=== PATIENT | female | born 1940 | race Caucasian/White ===

== ENCOUNTER → 2024-02-23 13:56 | Outpatient (REF) | payer OTHER, SELFPAY | LOC: HWRCS 13:56 | PROVIDERS: ATTENDING PHYSICIAN Internal Medicine Interventional Cardiology; FAMILY PHYSICIAN Emergency Medicine | DX: I10 Essential (primary) hypertension (principal); I25.10 Atherosclerotic heart disease of native coronary artery without angina pectoris; E78.2 Mixed hyperlipidemia | CPT/HCPCS: 93306 ==

== ENCOUNTER → 2024-10-25 10:54 | Outpatient (REF) | payer OTHER, SELFPAY | LOC: RAD 10:54 | PROVIDERS: ATTENDING PHYSICIAN Emergency Medicine | DX: M79.89 Other specified soft tissue disorders (principal) | CPT/HCPCS: 93971 ==

== ENCOUNTER 2024-12-25 22:12 | Inpatient (IN) | payer OTHER, SELFPAY ==
[2024-12-25 20:27] VITALS: BP 145/70
--- NOTE | 2024-12-25 21:25 | ED.GENMED ---
History of Present Illness
General
Chief Complaint: Fall
Source: patient
Exam Limitations: none
Time Seen by Provider: 12/25/24 20:27
Nursing documentation reviewed up to this point in time: agreed with
History of Present Illness
History of Present Illness:
84-year-old female with past medical history of CAD, previous stroke currently on Plavix presenting to the emergency department after sitting awkwardly on a chair that seem to break underneath her she fell directly onto her left hip has not been
able to ambulate since. Did not hit her head did not sustain any additional trauma. Adamantly denies any head trauma no neck pain no numbness or weakness. Was brought in by EMS.
Past History
Past History
ED Past Medical History: CAD, HTN and Hypercholesterolemia
ED Past Surgical History: Cardiac
Social History
Personal:
Living: with family
Review of Systems
Review of Systems
Allergies reviewed?: Yes
All Other Systems: ROS reviewed and negative except as documented in HPI and ROS
Phy Exam
Physical Exam
Physical Exam:
GENERAL: Alert , in no apparent distress
EYE: pupils equal and reactive
NECK: Supple, no significant adenopathy.
ENT: o/p clr, mmm.
CARDIAC: Regular rate and rhythm .
LUNGS: Clear breath sounds bilaterally, no acute respiratory distress, no wheezes/rales/rhonchi
ABDOMEN: Soft, without focal tenderness, no r/g, no cvat
NEUROLOGICAL: Alert and oriented, no focal neuro deficits
SKIN: Warm and dry, skin intact.
MUSCULOSKELETAL: Pain and swelling to the left hip unwilling to move at the hip no redness or warmth to the area no tenderness throughout the remainder of the lower extremities., well perfused.
PSYCH: Normal and appropriate interaction.
Course
Orders/Labs/Results
Orders:
Orders
12/25/24 20:32
CR Hip - LT w/wo Pel 2-3 Vw* Urgent
Comment:
Reason For Exam: injury/fall
Include a pelvis x-ray?: Yes
12/25/24 21:23
BMP [Basic Metabolic Panel] Urgent
CBC/With Diff [Complete Blood Count/With Diff] Stat
HYDROmorphone [Dilaudid] 0.5 mg IV NOW STA
Vital Signs
Initial and Last Documented VS:
Initial Vital Signs
Temp Pulse Resp BP Pulse Ox
98.2 F 66 20 145/70 97
12/25/24 20:27 12/25/24 20:27 12/25/24 20:27 12/25/24 20:27 12/25/24 20:27
Last Documented Vital Signs
Temp Pulse Resp BP Pulse Ox
98.2 F 66 20 145/70 97
12/25/24 20:27 12/25/24 20:27 12/25/24 20:27 12/25/24 20:27 12/25/24 20:27
MDM/Problems Addressed
MDM/Problems Addressed:
84-year-old female presenting to the emergency department today after landing on her hip on the left side after a chair broke underneath her. Vital signs normal patient in no distress but does have discomfort to the left hip. X-ray showing hip
fracture. Case discussed with orthopedics who recommend n.p.o. at midnight for likely repair tomorrow. Patient in no distress here stable at time of admission.
*Critical Care Note
Total Time (30-74mins, 75-104mins- exclusive of procedures): Not Applicable
ED Attending Note
-
Portions of this chart may have been created with voice recognition software.� Occasional wrong word or��sound alike� substitutions may have occurred due to the inherent limitations of voice recognition software.
Discharge Plan
Departure
Patient Disposition: Home (Routine Discharge)
Date of Disposition: 12/25/24
Time of Disposition: 21:28
Patient with high blood pressure during this ER visit?: No
Condition: Good
Covid-19: Not Applicable
Discharge Problem:
Hip fracture
Prescriptions:
No Action
metoprolol succinate [Toprol XL] 100 MG tablet extended release 24 hr
100 mg PO DAILY@1000
cyanocobalamin (vitamin B-12) 1,000 MCG tablet
1,000 mcg PO HS
clopidogrel 75 MG tablet
75 mg PO HS
aspirin [Adult Low Dose Aspirin] 81 MG tablet,delayed release (DR/EC)
81 mg PO DAILY@1000
isosorbide mononitrate 60 MG tablet extended release 24 hr
60 mg PO DAILY@1000
isosorbide mononitrate 60 MG tablet extended release 24 hr
30 mg PO HS
Patient Comments:
PT. TAKES 1/2 TABLET @ HS
amlodipine 10 MG tablet
10 mg PO DAILY@1000
pantoprazole 40 MG tablet,delayed release (DR/EC)
40 mg PO DAILY@1000
nitroglycerin 0.4 MG tablet, sublingual
0.4 mg sublingual [id number] PRN (Reason: CHEST PAIN)
cholecalciferol (vitamin D3) [Vitamin D3] 1,000 UNIT capsule
1,000 unit PO HS
vit C,D-Hj-amhup-lutein-zeaxan [PreserVision AREDS-2] 1 EACH capsule
1 ea PO BID
alirocumab [Praluent Pen] 150 MG/ML pen injector
150 mg SQ Q2W
Referrals:
UNKNOWN - PT DOES,NOT KNOW [Family Provider]
Interventions
Interventions:
*General Assessment Last Done: 12/25/24 20:27
ED-Musculoskeletal Assessment Last Done: 12/25/24 20:40
ED- Neurological Assessment Last Done: 12/25/24 20:40
ED-Skin Assessment Last Done: 12/25/24 20:40
Discharge Date and Time
Print Language: VINCENTIAN
[2024-12-25] MEDS: ZOFRAN 4 MG IV (21:29)
[2024-12-25] MEDS: DILAUDID 0.5 MG IV (21:29)
--- NOTE | 2024-12-25 21:31 | HPS.HSE ---
Family Physician
-
Family Physician: NOT KNOW UNKNOWN - PT DOES
Chief Complaint
-
Follow-up
History of Present Illness
This is a 84-year-old female with past medical history of CAD status post [place] and multiple stents, CVA on aspirin Plavix, hypertension, hyperlipidemia presenting to emergency department with a mechanical fall and found to have a left hip fracture.
Patient was at wedding ceremony. She attempted to sit down on a chair which was unbalanced and. She had a rock to the left. She ended up landing in the seated position on her left side. She did not hit her head. She denied any loss of
consciousness. She had immediate pain and ambulatory dysfunction. EMS was called and patient was brought to the emergency department. She had no prior orthopedic surgeries on the lower extremities. Last use of Plavix was about 24 hours ago. She
did take aspirin this morning. She is not on any thinners. Her last meal was at 6 PM.
In the emergency department patient was afebrile, blood pressure was 145/70 with a pulse of 60 and she was satting 98% on room air. X-ray shows a femoral neck fracture on the left.
Medical History
Past Medical History
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
Past Surgical History: Reports Cardiac
Social History
Tobacco: Non-smoker
Alcohol: None
Drug: None
Personal:
Living: With Family
Employment: Retired
Family History
Family History: Not pertinent
Allergies / Home Medications
Allergies reflects when Allergies were last updated in [employer].
Home Medications with original date entered in [employer]
Allergy/Medication List:
Allergies
Allergy/AdvReac Type Severity Reaction Status Date / Time
peppermint (Peppermint) Allergy SNEEZING Verified 12/25/24 20:27
simvastatin (From Zocor) Allergy MYALGIA Verified 12/25/24 20:27
Sulfa (Sulfonamide Allergy Unknown Verified 12/25/24 20:27
Antibiotics)
Home Medications
alirocumab 150 mg/mL subcutaneous pen injector (Praluent Pen) 150 mg SQ Q2W 10/05/18
amlodipine 10 mg tablet 10 mg PO DAILY@99910/05/18
aspirin 81 mg tablet,delayed release (Adult Low Dose Aspirin) 81 mg PO DAILY@99910/05/18
cholecalciferol (vitamin D3) 25 mcg (1,000 unit) capsule (Vitamin D3) 1,000 unit PO HS 10/05/18
clopidogrel 75 mg tablet 75 mg PO HS 10/05/18
cyanocobalamin (vitamin B-12) 1,000 mcg tablet 1,000 mcg PO HS 10/05/18
isosorbide mononitrate 60 mg tablet,extended release 24 hr 30 mg PO HS 10/05/18
isosorbide mononitrate 60 mg tablet,extended release 24 hr 60 mg PO DAILY@99910/05/18
metoprolol succinate 100 mg tablet,extended release 24 hr (Toprol XL) 100 mg PO DAILY@99910/05/18
nitroglycerin 0.4 mg sublingual tablet 0.4 mg sublingual [id number] PRN CHEST PAIN 10/05/18
pantoprazole 40 mg tablet,delayed release 40 mg PO DAILY@99910/05/18
vit C 250 mg-vit E 90 mg-zinc 40 mg-copper 1 im-zponew-avoyfi capsule (PreserVision AREDS-2) 1 ea PO BID 10/05/18
Review of Systems
-
Constitutional: Reports No Symptoms
EENT: Reports No Symptoms
Respiratory: Reports No Symptoms
Cardiac: Reports No Symptoms
Abdomen/GI: Reports No Symptoms
: Reports No Symptoms
Musculoskeletal: Reports Joint Pain
Skin: Reports No Symptoms
Neurological: Reports No Symptoms
Endocrine: Reports No Symptoms
Hematologic/Lymphatic: Reports No Symptoms
Psych: Reports No Symptoms
Physical Exam
Vital Signs
Vital Signs
Temp Pulse Resp BP Pulse Ox
98.2 F 66 20 145/70 97
12/25/24 20:27 12/25/24 20:27 12/25/24 20:27 12/25/24 20:27 12/25/24 20:27
Physical Exam
General: Well Developed, Well Nourished and No Apparent Distress
HEENT: NormoCephalic, Moist mucous membranes and Atraumatic
Respiratory: Clear
Cardiac: S1/S2 and Regular Rhythm; No Murmur or Rub
GI: Soft, Non Tender, Non Distended and Normal Bowel Sounds; No Organomegaly
Rectal: Deferred by Provider
Musculoskeletal: No Clubbing, No Cyanosis, Edema, Left Lower Extremity and Edema, Right Lower Extremity
Skin: No Rash
Neuro: Nonfocal/grossly intact and No Sensory Deficits
Hematologic/Lymphatic: No Lymphadenopathy
Psych: Calm
Data Reviewed
-
Diagnostic Radiology: Image Personally Visualized and interpreted
Lab Data: Labs Reviewed by me
Impression/Plan
-
IMPRESSION:
84-year-old with a mechanical fall resulting in left femoral neck fracture. She is on aspirin and Plavix with last dose of Plavix yesterday evening. No other thinners.
PLAN:
Fracture -left femoral neck fracture requiring surgery
-Admit to [facility]
-N.p.o. after midnight
-Holding Plavix for now, history of CVA 5 years ago, no stents
-Holding aspirin for now, restart after surgery
-No thinners pending surgery
-Bedrest, pain control antiemetics, gentle hydration
- Surgery consulted and aware plan for OR in a.m.
- PT OT, case management consult
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 On aspirin/plavix. No CP.
- Holding aspirin and Plavix now, restart plavix within 48 hours after surgery
- Continue metoprolol, continue isosorbide mononitrate
- Restart amlodipine day following surgery.
DVT PPX - hold AC pending surgery
Code status
[2024-12-25 21:41] LABS: % Basophils 0.5 % (0-2); % Eosinophils 1.1 % (0-6); % Immature Granulocytes 0.4 % (0-0.5); % Lymphocytes 16.4 % (20.5-51.1); % Monocytes 6.1 % (1.7-9.3); % Neutrophils 75.5 % (42.2-75.2); Absolute Basophils 0.1 10^3/uL (0-0.2); Absolute Eosinophils 0.2 10^3/uL (0-0.7); Absolute Immature Granulocytes 0.1 10^3/uL (0-0.05); Absolute Lymphocytes 2.6 10^3/uL (1.2-3.4); Absolute Neutrophils 11.8 10^3/uL (1.4-6.5); Hematocrit 34.6 % (37.0-47.0); Hemoglobin 11.8 g/dL (12.0-16.0); Mean Corp Hgb Conc. 34.1 g/dL (33.0-37.0); Mean Corpuscular Hgb 30.4 pg (27.0-31.0); Mean Corpuscular Volume 89.2 fL (81.0-99.0); Mean Platelet Volume 9.9 fL (7.4-10.4); Nucleated Red Blood Cells % 0 %; Platelet Count 241 10^3/uL (130-400); Red Blood Cell Count 3.88 10^6/uL (4.20-5.40); Red Cell Dist. Width 13.4 % (11.5-14.5); White Blood Cell Count 15.7 10^3/uL (4.8-10.8)
[2024-12-25 21:58] LABS: Blood Urea Nitrogen 18 mg/dl (7-17); Calcium 9.4 mg/dl (8.4-10.2); Carbon Dioxide 23 mmol/L (22-30); Chloride 109 mmol/L (98-107); Glucose 133 mg/dl (70-99); Potassium 3.7 mmol/L (3.5-5.1); Sodium 140 mmol/L (135-145); eGFR > 60.00
[2024-12-25 22:24] VITALS: BP 112/72
[2024-12-25 23:33] VITALS: BP 122/52
[2024-12-25 23:35] VITALS: BMI 21.7
--- NOTE | 2024-12-25 23:40 | EDRN ---
Pt requesting pain medication - processed tylenol and oxycodone orders and called pharmacy to verify. Updated pt on plan of care
[2024-12-25] MEDS: TYLENOL 650 MG PO (23:45)
[2024-12-25] MEDS: ROXICODONE 5 MG PO (23:45)
[2024-12-26] VITALS (13 sets, daily range): BP systolic 121–143; BP diastolic 55–77; BMI 22.7; BMI 22.9
[2024-12-26] MEDS: D5LR 1000 IV ×2 (00:52→19:45)
[2024-12-26] MEDS: SENOKOT 17.2 MG PO ×3 (01:01→19:45)
[2024-12-26] MEDS: COLACE 100 MG PO ×3 (01:02→19:45)
[2024-12-26] MEDS: IMDUR (EXTENDED RELEASE) 30 MG PO ×2 (01:02→22:00)
--- NOTE | 2024-12-26 03:08 | PTCARENOTE ---
00:20 pt rec'vd from ER , D5lr hung, vs WNL pt assessment bruising on left hip, abrasion on the elbow and scattered ecchymotic christo and left f/a. pt void on bedpan,denies pain, oriented to unit.
[2024-12-26] MEDS: TYLENOL 650 MG PO ×4 (03:44→23:21)
--- NOTE | 2024-12-26 07:41 | W.PN.HOSP.TC ---
Addendum entered and electronically signed by Misael Chester MD 12/26/24 10:51:
Continue Aspirin
Original Note:
Today's Communication/Plan
-
Hip fracture surgery today
Assessment / Plan
Assessment / Plan
Physical Exam
General: Well Developed, Well Nourished and No Apparent Distress
HEENT: Normocephalic, Moist mucous membranes and Atraumatic
Respiratory: Clear to Auscultation Bilaterally
Cardiac: S1/S2 and Regular Rhythm
GI: Soft, Non Tender, Non Distended and Normal Bowel Sounds
Musculoskeletal: No Cyanosis. Tender to palpation over left lateral hip. Able to plantar/dorsiflex ankle without difficulty. Neurovascularly intact distally in the distal lower extremities.
Skin: Warm. Dry.
Neuro: Nonfocal/grossly intact and No Sensory Deficits
Psych: Calm
Assessment/Plan
84-year-old female with past medical history of CAD status post [place] and multiple stents (sees [facility] cop winder Dr. Zhou outpatient), CVA on aspirin Plavix, hypertension and hyperlipidemia, presented to emergency department with a mechanical fall
and found to have a left hip fracture. Patient was at wedding ceremony. She attempted to sit down on a chair which was unbalanced and, she had a rock to the left, she ended up landing in the seated position on her left side (mechanical fall). She
did not hit her head. She denied any loss of consciousness. She had immediate pain and ambulatory dysfunction. EMS was called and patient was brought to the emergency department. She had no prior orthopedic surgeries on the lower extremities.
Last use of Plavix was about 24 hours prior to presentation. She did take aspirin on the morning of 12/26/24. In the emergency department patient was afebrile, blood pressure was 145/70 with a pulse of 60 and she was satting 98% on room air. X-ray
showed a femoral neck fracture on the left.
Fracture -left femoral neck fracture requiring surgery
-N.p.o. for left hip fracture surgery today
-Holding Plavix for now, history of CVA 5 years ago, no stents
-Holding aspirin for now, restart after surgery
-Cardiology clearance given history of mutliple stents per cardio she is at moderate risk, but stable for surgery
-Bedrest, pain control antiemetics, gentle hydration
- PT OT, case management consult
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 On aspirin/plavix. No CP.
- Holding aspirin and Plavix now
- Continue metoprolol, continue isosorbide mononitrate
- Restart amlodipine day following surgery.
History of Stroke
DVT Prophylaxis: As per orthopedics recommendations following surgery
Code status: Full Code
Anticipated Discharge: 24 - 48 hours
Subjective/Interval History
-
Date of Service: December 26, 2024
Patient was seen and examined. She denied any fever, chest pain, shortness of breath or any other symptoms or complaints. She denied any pain at rest.
Objective Data
-
Labs:
Laboratory Results
12/25/24
21:26
WBC 15.7 H
Hgb 11.8 L
Hct 34.6 L
Plt Count 241
Sodium 140
Potassium 3.7
Chloride 109 H
Carbon Dioxide 23
BUN 18 H
Creatinine 0.8
Glucose 133 H
Calcium 9.4
Vital Signs:
Vital Signs
Temp Pulse Resp BP Pulse Ox
98.4 F 66 16 141/71 95
12/26/24 00:50 12/26/24 00:50 12/26/24 00:50 12/26/24 00:50 12/26/24 00:50
I&O
12/25/24 12/26/24 12/27/24
06:59 06:59 06:59
Intake Total 480 / 480
Balance 480 / 480
[2024-12-26] MEDS: ROXICODONE 5 MG PO (07:50)
--- NOTE | 2024-12-26 08:38 | CON.ORTHO ---
Consultation
-
Date/Time Consultation Requested: 12/25/2024
Date/Time Consultation Performed: 12/26/2024
Requesting Provider: Dr. Clark
Performing Provider: Gabby Tavera PA-C, for Dr. Frederic Ayala
Reason for Consultation: Left hip fracture
Consultation - Orthopedics
History
HPI: Destinee is an 84 year old female who presented to ED after sustaining a fall onto her left hip prior to arrival. She was at a wedding and was advised to sit down in a chair. The chair broke as she sat on it, causing her to fall to the ground.
She experienced immediate pain in the left hip and inability to ambulate. EMS was called and she was brought to the ED. X-rays demonstrated a subcapital femur fracture. She denies any pain elsewhere. She denies any prior issues with her left
hip. She lives with her significant other in a ranch home in [place]. She does not use an assistive device at baseline. Our orthopedic specialty was consulted in to discuss surgical managment.
PMH: Significant for CAD with multiple stents, CVA 5-6 years ago, HTN, HLD.
PSH: cardiac stents.
Social history: Denies tobacco or alcohol use. Lives independently with significant other.
Family history: non contributory.
Review of systems: all systems reviewed and negative except for those mentioned in HPI.
Allergies / Home Medications
Allergy/AdvReac Type Severity Reaction Status Date / Time
peppermint (Peppermint) Allergy SNEEZING Verified 12/25/24 20:27
simvastatin (From Zocor) Allergy MYALGIA Verified 12/25/24 20:27
Sulfa (Sulfonamide Allergy Unknown Verified 12/25/24 20:27
Antibiotics)
�Medication �Instructions �Recorded
alirocumab 150 mg/mL subcutaneous 150 mg SQ Q2W High Cholesterol 10/05/18
pen injector (Praluent Pen)
amlodipine 10 mg tablet 10 mg PO DAILY@1000 Blood Pressure 10/05/18
aspirin 81 mg tablet,delayed 81 mg PO DAILY@1000 Blood Clot 10/05/18
release (Adult Low Dose Aspirin) Prevention/Tx
cholecalciferol (vitamin D3) 25 1,000 unit PO HS Supplement 10/05/18
mcg (1,000 unit) capsule (Vitamin
D3)
clopidogrel 75 mg tablet 75 mg PO HS Blood Clot 10/05/18
Prevention/Tx
cyanocobalamin (vitamin B-12) 1,000 mcg PO HS Supplement 10/05/18
1,000 mcg tablet
isosorbide mononitrate 60 mg 30 mg PO HS Heart Disease/Condition 10/05/18
tablet,extended release 24 hr
isosorbide mononitrate 60 mg 60 mg PO DAILY@1000 Heart 10/05/18
tablet,extended release 24 hr Disease/Condition
metoprolol succinate 100 mg 100 mg PO DAILY@1000 Blood Pressure 10/05/18
tablet,extended release 24 hr
(Toprol XL)
nitroglycerin 0.4 mg sublingual 0.4 mg sublingual [id number] PRN 10/05/18
tablet CHEST PAIN
pantoprazole 40 mg tablet,delayed 40 mg PO DAILY@1000 10/05/18
release Gastrointestinal Issue
vit C 250 mg-vit E 90 mg-zinc 40 1 ea PO BID Supplement 10/05/18
mg-copper 1 [id number]
capsule (PreserVision AREDS-2)
Vital Signs / Lab Results
Temp Pulse Resp BP Pulse Ox
98.1 F 61 16 126/63 95
12/26/24 06:55 12/26/24 06:55 12/26/24 06:55 12/26/24 06:55 12/26/24 06:55
12/25/24 21:26
12/25/24 21:26
Physical examination:
General: WD/WN female in NAD at rest. AAO x 3.
HEENT: AT/NC, neck supple.
Lungs: non labored breathing on room air, no audible wheezing.
Heart: RRR.
Left hip: TTP over lateral hip. Mild swelling. ROM not tested due to known fracture. Calf soft and non tender to palpation. Able to plantar/dorsiflex ankle without difficulty. N/v intact distally.
Radiographic studies:
X-rays of the left hip from 12/25/2024 shows evidence of a displaced subcapital fracture.
Assessment / Plan
Assessment: Left hip femoral neck fracture.
Plan: Unfortunately, Destinee sustained a left femoral neck fracture during her fall last night. This will require surgical fixation in the form of a left hip hemiarthroplasty. The surgery was explained in detail, along with the associated risks,
benefits, and recovery process. Surgical and blood consents were obtained and placed in patient's chart. The plan will be to proceed with surgery later today under the direction of Dr. Ayala. 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 Left hip
marked as correct surgical site. She will be NPO until surgery. All questions were answered and patient was in agreement with treatment recommendations. I contacted her son, Trace, and discussed the plan going forward at her request.
--- NOTE | 2024-12-26 10:05 | CM ---
Reviewed the chart notes and spoke with the patient at the bedside. The patient resides with her significant other in a one story home with one step to enter via garage or a total of two steps via front door. The patient reports no DME/VN/SNF in
the past. The patient confirmed her pharmacy of choice is [facility]. The patient is scheduled to go to the OR for L hip fx repair today. CM continues to be available to patient/family and is monitoring medical plan for needs at
discharge.
Plan: Discharge plans will depend on the patient's progress.
--- NOTE | 2024-12-26 10:37 | CON.CAR ---
Consultation
Consultation Request
Date/Time Consultation Requested: 12/26/24 10:00 AM
Date/Time Consultation Performed: 12/26/24 10:30 AM
Requesting Provider: Dr Chester
Performing Provider: Dr Fall
Reason for Consultation: preop
Medical History
-
Chief Complaint: fall
History of Present Illness:
84-year-old female with past medical history of coronary artery disease/[place], hypertension, CVA, hyperlipidemia, and moderate mitral regurgitation presents to the hospital after a fall at a wedding. She was sitting on a chair and the chair broke and
she fell on her left side. She was then found to have a left femur fracture. We were asked to see her as a preop evaluation prior to orthopedic surgery. She overall remains relatively stable. She has no new chest pains. She has some dyspnea on
exertion is not overly active but denies any orthopnea, PND, or edema. She can do some light walking and walks with a cane at times. She has no fevers or chills. She has no coughing or wheezing. She has no palpitations or syncope.
Past Medical History
Past Medical History: CAD (History of anterior myocardial infarction, status post LAD stent on 07/10/2008 and return for bare metal stent to the [facility] on 07/12/2008, FAMILY COUNSELOR of the RCA), CVA, GERD, HTN, Hypercholesterolemia and Valvular Disease
(Moderate mitral regurgitation)
Past Surgical History: None
Social History
Tobacco: Non-Smoker
Alcohol: None
Drug: None
Employment: Retired
Family History
Family History: CAD and Hypertension
Allergies / Home Medications
Allergy/AdvReac Type Severity Reaction Status Date / Time
peppermint (Peppermint) Allergy SNEEZING Verified 12/25/24 20:27
simvastatin (From Zocor) Allergy MYALGIA Verified 12/25/24 20:27
Sulfa (Sulfonamide Allergy Unknown Verified 12/25/24 20:27
Antibiotics)
�Medication �Instructions �Recorded �Confirmed �Type
alirocumab 150 mg/mL subcutaneous 150 mg SQ Q2W High Cholesterol 10/05/18 09/14/19 History
pen injector (Praluent Pen)
amlodipine 10 mg tablet 10 mg PO DAILY@1000 Blood Pressure 10/05/18 09/14/19 History
aspirin 81 mg tablet,delayed 81 mg PO DAILY@1000 Blood Clot 10/05/18 09/14/19 History
release (Adult Low Dose Aspirin) Prevention/Tx
cholecalciferol (vitamin D3) 25 1,000 unit PO HS Supplement 10/05/18 09/14/19 History
mcg (1,000 unit) capsule (Vitamin
D3)
clopidogrel 75 mg tablet 75 mg PO HS Blood Clot 10/05/18 10/05/18 History
Prevention/Tx
cyanocobalamin (vitamin B-12) 1,000 mcg PO HS Supplement 10/05/18 09/14/19 History
1,000 mcg tablet
isosorbide mononitrate 60 mg 30 mg PO HS Heart Disease/Condition 10/05/18 09/14/19 History
tablet,extended release 24 hr
isosorbide mononitrate 60 mg 60 mg PO DAILY@1000 Heart 10/05/18 09/14/19 History
tablet,extended release 24 hr Disease/Condition
metoprolol succinate 100 mg 100 mg PO DAILY@1000 Blood Pressure 10/05/18 09/14/19 History
tablet,extended release 24 hr
(Toprol XL)
nitroglycerin 0.4 mg sublingual 0.4 mg sublingual [id number] PRN 10/05/18 09/14/19 History
tablet CHEST PAIN
pantoprazole 40 mg tablet,delayed 40 mg PO DAILY@1000 10/05/18 09/14/19 History
release Gastrointestinal Issue
vit C 250 mg-vit E 90 mg-zinc 40 1 ea PO BID Supplement 10/05/18 09/14/19 History
mg-copper 1 [id number]
capsule (PreserVision AREDS-2)
Review of Systems
-
History Source: Patient
Constitutional: No Symptoms
EENT: No Symptoms
Respiratory: No Symptoms
Cardiac: No Symptoms
Abdomen/GI: No Symptoms
: No Symptoms
Musculoskeletal: Joint Pain and Joint Swelling
Skin: No Symptoms
Neurological: No Symptoms
Endocrine: No Symptoms
Hematologic/Lymphatic: No Symptoms
Physical Exam
Vital Signs
Temp Pulse Resp BP Pulse Ox
98.1 F 61 16 126/63 95
12/26/24 06:55 12/26/24 06:55 12/26/24 06:55 12/26/24 06:55 12/26/24 06:55
Lab Results
12/25/24 21:26
12/25/24 21:26
Physical Exam
General: Well Developed and No Apparent Distress
HEENT: Normocephalic, Anicteric and Moist Mucous Membranes
Respiratory: Clear and Non Labored Respirations
Cardiac: S1/S2, Regular Rhythm and Murmur (07/26 AHSM)
GI: Soft, Non Tender and Non Distended
Musculoskeletal: No Edema and Other (Left hip ecchymosis)
Skin: Warm and Dry
Neuro: Awake and AO x 3
Psych: Calm
Impression / Plan
-
Assess:
Fall status post left femoral fracture
Preop cardiovascular evaluation
CAD/history of anterior myocardial infarction, status post LAD stent on 07/10/2008 and return for bare metal stent to the circ on 07/12/2008 with FAMILY COUNSELOR of the RCA.
Catheterization in 2015 with patent LAD and circ stents, with 100% occlusion of apical LAD.
Hypertension.
CVA
Hyperlipidemia.
Statin intolerance.
Moderate MR
Elevated white blood cell count
Echo 02/23/24, EF 50 to 55% with mild anteroapical hypokinesis, mild to moderate MR, aortic sclerosis, PA pressure 35
Cardiac Catheterization 2014 with patent LAD and circ stents, with 100% occlusion of apical LAD.
PLan:
She presents status post mechanical fall with a left femoral fracture. She is stable to proceed to the operating room. She will be moderate risk. She has no unstable cardiac syndromes.
Her EKG is stable with sinus rhythm with nonspecific T wave abnormalities.
Echo from 2023 has a preserved ejection fraction with moderate mitral regurgitation.
She has known coronary artery disease which has been treated medically for the past number of years.
Continue amlodipine, Imdur, Toprol, and aspirin. She has been statin intolerant.
She should be placed on telemetry postsurgery.
Data Reviewed
-
EKG: Tracing Personally Visualized and interpreted
Radiology: Report Reviewed by me
Medical Tests (Nuc Med, Echo etc): Report Reviewed by me
Labs: Labs Reviewed by me
Old Records: Reviewed
[2024-12-26] MEDS: ZOFRAN 4 MG IV (10:52)
--- NOTE | 2024-12-26 15:27 | W.IMMPOSTOP ---
Surgical Immed Post Op Note
-
Primary Surgeon: Lucy
Assisting Surgeon: Gabby Tavera PA-C
Pre-op Diagnosis: Left hip femoral neck fracture
Post-op Diagnosis: Same
Procedure Performed: Left hip hemiarthroplasty
Anesthesia Type: General
Specimen / Cultures: None
Estimated Blood Loss: 20cc
Complications: None
Operative Findings: Dictated [id number]
Plan:
- WBAT LLE
- OK to restart plavix and ASA tomorrow AM
- PT/ OT
[2024-12-26] MEDS: TYLENOL PO ×2 (15:57→17:05)
[2024-12-26] MEDS: PROTONIX PO (15:57)
[2024-12-26] MEDS: TOPROL XL PO (16:58)
[2024-12-26] MEDS: ASPIR LOW (ENTERIC COATED) PO (16:58)
[2024-12-26] MEDS: IMDUR (EXTENDED RELEASE) PO (16:58)
[2024-12-26] MEDS: BACTROBAN 2% OINTMENT 1 APPLIC NASAL (19:45)
[2024-12-26] MEDS: ANCEF 5 IV (22:10)
[2024-12-27 03:09] VITALS: BP 122/54
[2024-12-27] MEDS: TYLENOL 650 MG PO ×2 (04:20→08:41)
[2024-12-27] MEDS: ANCEF 5 IV (05:00)
[2024-12-27 07:15] VITALS: BP 155/71
[2024-12-27 07:47] LABS: Hematocrit 28.1 % (37.0-47.0); Hemoglobin 9.4 g/dL (12.0-16.0); Mean Corp Hgb Conc. 33.5 g/dL (33.0-37.0); Mean Corpuscular Hgb 29.8 pg (27.0-31.0); Mean Corpuscular Volume 89.2 fL (81.0-99.0); Mean Platelet Volume 10.5 fL (7.4-10.4); Platelet Count 196 10^3/uL (130-400); Red Blood Cell Count 3.15 10^6/uL (4.20-5.40); Red Cell Dist. Width 13.4 % (11.5-14.5); White Blood Cell Count 12.7 10^3/uL (4.8-10.8)
[2024-12-27 08:14] LABS: Blood Urea Nitrogen 10 mg/dl (7-17); Calcium 8.9 mg/dl (8.4-10.2); Carbon Dioxide 27 mmol/L (22-30); Chloride 108 mmol/L (98-107); Estimated Creatinine Clearance 51 ml/min; Glucose 134 mg/dl (70-99); Magnesium 1.7 mg/dl (1.6-2.3); Potassium 3.6 mmol/L (3.5-5.1); Sodium 140 mmol/L (135-145); eGFR > 60.00
--- NOTE | 2024-12-27 08:25 | W.PN.ORTHO ---
Today's Communication / Plan
-
Appreciate the primary team, continue Tx
Appreciate CM, likely SNF
Continue WBAT B/L LEs on device
PT/OT, THPs x 6 weeks
Plavix + ASA resumed for DVT ppx, or per primary
Dressing to remain 7-10 days
Pain control/ice to hip
Fidelia out at 2 weeks (SNF or office)
If fidelia out at [facility] outpatient Ortho follow-up 4 weeks
Assessment
.
Distal Motor Intact: Yes
Dressing:
Clean, dry and intact. Primaseal in place
Assessment:
POD#1 Left Idris Hip
Overall doing/feeling well
Calf soft, nontender
Plan
.
Surgery / Date: Left hip idris January 12 ([facility])
DVT Prophylaxis: Aspirin and Other (Plavix)
Activity:
Out of bed. WBAT B/L LEs on device
PT/OT, THPs x 6 weeks
Discharge Plan: SNF and Other (Appreciate CM)
Subjective
.
.:
Patient resting comfortably in bed. Overall doing/feeling well
Vital Signs and Labs
.
Vital Signs and Labs:
Lab Results
12/27/24 07:03
12/27/24 07:03
Temp Pulse Resp BP Pulse Ox
98.5 F 64 18 155/71 93
12/27/24 07:15 12/27/24 07:15 12/27/24 07:15 12/27/24 07:15 12/27/24 07:15
Non-invasive Hgb result: 13.7
[2024-12-27] MEDS: ASPIR LOW (ENTERIC COATED) 81 MG PO (08:41)
[2024-12-27] MEDS: COLACE 100 MG PO (08:42)
[2024-12-27] MEDS: SENOKOT 17.2 MG PO (08:42)
[2024-12-27] MEDS: BACTROBAN 2% OINTMENT 1 APPLIC NASAL (08:42)
[2024-12-27] MEDS: ROXICODONE 5 MG PO (08:51)
--- NOTE | 2024-12-27 09:50 | CM ---
Addendum entered by Josephine Gary RN 12/27/24 11:47:
CM spoke with patient and reviewed PT notes. [facility]errals [facility] to [facility]. CM is awaiting acceptance feedback.
Original Note:
CM met with patient and daughter in room. CM discussed SNF. Patient stated that she feels that she does not need rehab. Patient stated that she lives on the first floor and will be able to 'manage'. CM advised that PT/OT will work with patient and
make further discharge planning recommendations.
Daughter in room stated that family is currently researching SNF's and understands that patient may need to go to SNF for STR with plan to return home.
CM will await PT notes to discuss SNF options further.
[2024-12-27 10:34] VITALS: BP 142/66; PULSE 71; O2SAT 93
[2024-12-27 10:46] VITALS: BP 142/66; PULSE 71
[2024-12-27] MEDS: IMDUR (EXTENDED RELEASE) 60 MG PO (10:57)
[2024-12-27] MEDS: TOPROL XL 100 MG PO (10:57)
[2024-12-27] MEDS: PROTONIX 40 MG PO (10:57)
[2024-12-27] MEDS: NORVASC 10 MG PO (10:58)
[2024-12-27 11:50] VITALS: BP 145/79
--- NOTE | 2024-12-27 12:48 | W.PN.HOSP.TC ---
Today's Communication/Plan
-
Discharge planning
Assessment / Plan
Assessment / Plan
Gen-AAOx3, NAD
HEENT-NC, AT, anicteric, clear oral mm
Neck-supple
CV-reg, no M, +S1/S2
Lungs-clear B/L
Abd-soft, NT, ND
Ext-no edema
Musculoskeletal-no cyanosis, clubbing
Skin-warm and dry
Neuro-grossly non-focal
Psych-calm, cooperative
Acute traumatic left femoral subcapital fracture -due to fall and underlying osteoporosis. Stable postoperatively, left hip hemiarthroplasty. Continue analgesics, PT/OT.
Acute postop anemia -suspect due to operative blood loss anemia. Hemodynamically stable. Monitor for now.
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
Aspirin and Plavix resumed.
History of Stroke
Essential hypertension -stable.
Hyperlipidemia
GERD
Full Code
Dispo -medically stable for discharge to SNF. Case management aware.
Family updated at the bedside.
Anticipated Discharge: Within 24 hours
Subjective/Interval History
-
Date of Service: December 27, 2024
Patient seen and examined. No complaints.
Objective Data
-
Labs:
Laboratory Results
12/27/24
07:03
WBC 12.7 H
Hgb 9.4 L D
Hct 28.1 L
Plt Count 196
Sodium 140
Potassium 3.6
Chloride 108 H
Carbon Dioxide 27
BUN 10
Creatinine 0.5 L
Glucose 134 H
Calcium 8.9
Vital Signs:
Vital Signs
Temp Pulse Resp BP Pulse Ox
98.5 F 64 18 155/71 93
12/27/24 07:15 12/27/24 07:15 12/27/24 07:15 12/27/24 07:15 12/27/24 07:15
I&O
12/26/24 12/27/24 12/28/24
06:59 06:59 06:59
Intake Total 480 / 480 1160 / 1160
Output Total 400 / 400
Balance 480 / 480 760 / 760
Review of Systems
-
History Source: Patient
All other systems: Reviewed and negative
[2024-12-27] MEDS: TYLENOL PO ×2 (13:39→16:24)
--- NOTE | 2024-12-27 14:03 | CM ---
Addendum entered by Josephine Gary RN 12/27/24 14:53:
[facility]
Report
[phone]
fax
[phone]
Addendum entered by Josephine Gary RN 12/27/24 14:51:
Patient's family changed their minds and are now agreeable to [facility].
[facility] Authorization
[id number]
NRD 12/31
Original Note:
Patient does not want [facility] and would prefer [facility]. CM contacted [facility] to confirm a bed.
--- NOTE | 2024-12-27 14:51 | W.PN.CARDCBS ---
Addendum entered and electronically signed by Lex Watson MD 12/27/24 15:08:
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
PMH: CAD as above, CVA, GERD, hypertension, hypercholesterolemia, moderate MR
Current meds: Praluent as outpatient, amlodipine 10 mg a day, Imdur 60 mg a day a.m. 30 p.m., Toprol ER 100 mg a day, pantoprazole 40 mg daily, aspirin 81 mg a day and clopidogrel
Rest of history per initial consult
145/79, pulse 72, respiratory rate 18, frail, pleasant, lungs clear, regular rate and rhythm, no obvious murmurs, abdomen benign, 1+ to 2+ edema
ECG probably sinus rhythm, left axis, LVH, inferior WI, possible septal WI
Hemoglobin 9.4, BUN and creatinine are 10 and 0.5 potassium 3.6, magnesium 1.7
Impression:
As noted below by Sindi Spears. Reviewed in detail and agree, unless specifically noted below
Plan:
She is stable from a cardiac standpoint.
Okay to proceed with discharge planning.
Would not change cardiac regimen at this time.
She should follow-up to our office as is her routine.
We will sign off, please call if questions.
Original Note:
Today's Communication / Plan
-
Plavix resumed today
Continue preop regimen of amlodipine, Imdur, Toprol, and aspirin
Anticipate discharge within next 24 hours pending bed availability
Stable from cardiac standpoint for discharge
Impression / Plan
-
PCP: Cady phillips
Front Desk Associate: Lex Zhou
Assess:
Presented 12/25/2024 with hip fracture following malfunctioning chair/fall
Fall status post left femoral fracture
Status post left hip hemiarthroplasty 12/26/2024
CAD/history of anterior myocardial infarction, status post LAD stent on 07/10/2008 and return for bare metal stent to the circ on 07/12/2008 with CORE FEEDER of the RCA.
Catheterization in 2015 with patent LAD and circ stents, with 100% occlusion of apical LAD.
Hypertension.
CVA
Hyperlipidemia.
Statin intolerance.
Moderate MR
Elevated white blood cell count
Echo 02/23/24, EF 50 to 55% with mild anteroapical hypokinesis, mild to moderate MR, aortic sclerosis, PA pressure 35
Cardiac Catheterization 2015 with patent LAD and circ stents, with 100% occlusion of apical LAD.
PLan:
She presents status post mechanical fall with a left femoral fracture.
Status post left hemiarthroplasty 12/26/2024
Postop hemoglobin 9.4
Doing well postop without any specific cardiac complaints.
Per review of telemetry patient has remained in sinus rhythm without significant arrhythmias or signs of ischemia
Blood pressure stable.
Continue amlodipine, Imdur, Toprol, Plavix and aspirin.
Was able to ambulate some with assistance of physical therapy
Plan to go to SNF short-term. Awaiting placement
Progress Note - Front Desk Associate
Subjective
Date of Service: December 27, 2024
Patient seen and examined. Patient notes some left hip pain otherwise reports feeling well. Denies any specific cardiac complaints
Objective
Labs:
12/27/24 07:03
12/27/24 07:03
Labs
Hgb 9.4 g/dL (12.0-16.0) L D 12/27/24 07:03
Hct 28.1 % (37.0-47.0) L 12/27/24 07:03
Plt Count 196 10^3/uL (130-400) 12/27/24 07:03
Sodium 140 mmol/L (135-145) 12/27/24 07:03
Potassium 3.6 mmol/L (3.5-5.1) 12/27/24 07:03
BUN 10 mg/dl (7-17) 12/27/24 07:03
Creatinine 0.5 mg/dL (0.6-1.0) L 12/27/24 07:03
Glucose 134 mg/dl (70-99) H 12/27/24 07:03
Vital Signs and I&O:
Vital Signs
Temp Pulse Resp BP Pulse Ox
98.9 F 72 18 145/79 95
12/27/24 11:50 12/27/24 11:50 12/27/24 11:50 12/27/24 11:50 12/27/24 11:50
Vital Signs
Temp Pulse Resp BP Pulse Ox
98.9 F 72 18 145/79 95
12/27/24 11:50 12/27/24 11:50 12/27/24 11:50 12/27/24 11:50 12/27/24 11:50
Intake & Output
12/25/24 12/26/24 12/27/24 12/28/24
06:59 06:59 06:59 06:59
Intake Total 480 / 480 1160 / 1160
Output Total 400 / 400
Balance 480 / 480 760 / 760
Physical Exam
Physical Exam
GEN: No distress, awake, Ox3, lying in bed
HEENT: supple, anicteric, mmm
LUNGS: CTA anteriorly, no wheezes/rales
CV: Reg, S1/S2, 1/6 AHSM, no rub or gallop
ABD: soft, BS+, NT/ND
EXT: No edema, clubbing or cyanosis; left hip and upper arm ecchymosis
NEURO: Gross non-focal
SKIN: No rash, warm, dry, pink
--- NOTE | 2024-12-27 14:53 | W.DS.TRANS ---
DC Summary - Data Operations Manager
-
Discharge Instructions:
Discharge Diagnosis/Procedures Left hip fracture
Diet Regular
Activity With assistance,As tolerated
Driving Restrictions No driving
Bathing Restrictions None
Instructions:
Stand-Alone Forms:
Changes to Home Medications: No
Discharge Medications:
DC Medications w/original date entered in [employer]
alirocumab 150 mg/mL subcutaneous pen injector (Praluent Pen) 150 mg SQ Q2W High Cholesterol 10/05/18
amlodipine 10 mg tablet 10 mg PO DAILY@1000 Blood Pressure 10/05/18
aspirin 81 mg tablet,delayed release (Adult Low Dose Aspirin) 81 mg PO DAILY@1000 Blood Clot Prevention/Tx 10/05/18
cholecalciferol (vitamin D3) 25 mcg (1,000 unit) capsule (Vitamin D3) 1,000 unit PO HS Supplement 10/05/18
clopidogrel 75 mg tablet 75 mg PO HS Blood Clot Prevention/Tx 10/05/18
cyanocobalamin (vitamin B-12) 1,000 mcg tablet 1,000 mcg PO HS Supplement 10/05/18
isosorbide mononitrate 60 mg tablet,extended release 24 hr 30 mg PO HS Heart Disease/Condition 10/05/18
isosorbide mononitrate 60 mg tablet,extended release 24 hr 60 mg PO DAILY@1000 Heart Disease/Condition 10/05/18
metoprolol succinate 100 mg tablet,extended release 24 hr (Toprol XL) 100 mg PO DAILY@1000 Blood Pressure 10/05/18
pantoprazole 40 mg tablet,delayed release 40 mg PO DAILY@1000 Gastrointestinal Issue 10/05/18
vit C 250 mg-vit E 90 mg-zinc 40 mg-copper 1 [id number] capsule (PreserVision AREDS-2) 1 ea PO BID Supplement 10/05/18
oxycodone 5 mg tablet 5 mg PO Q4HPRN PRN mild pain #0 tabs 12/27/24
sennosides 8.6 mg tablet (Justyna-mervat) 17.2 mg (2 x 8.6 mg) PO BID #0 tabs 12/27/24
Home Medication Changes
Pending Results: No
--- NOTE | 2024-12-27 15:05 | PTCARENOTE ---
report given to jesse mcclelland at [facility].
[2024-12-27 15:10] VITALS: BP 132/62
[2024-12-27 15:39] LABS: COVID-19 Antigen Negative (Negative)
== END 2024-12-27 18:25 | DRG 522 ==
LOC: 2 SOUTH 22:12
PROVIDERS: Hospitalist; Physician Assistant; ADMITTING PHYSICIAN Internal Medicine; ATTENDING PHYSICIAN Hospitalist; CONSULT PHYSICIAN Internal Medicine Cardiovascular Disease; CONSULT PHYSICIAN Orthopaedic Surgery; EMERGENCY PHYSICIAN Emergency Medicine
PROC: 0SRS0J9 Replacement of Left Hip Joint, Femoral Surface with Synthetic Substitute, Cemented, Open Approach (ICD-10-PCS; 2024-12-26)
DX: S72.012A Unspecified intracapsular fracture of left femur, initial encounter for closed fracture (principal); D62 Acute posthemorrhagic anemia; I25.10 Atherosclerotic heart disease of native coronary artery without angina pectoris; E78.00 Pure hypercholesterolemia, unspecified; Z86.73 Personal history of transient ischemic attack (TIA), and cerebral infarction without residual deficits; I10 Essential (primary) hypertension; W19.XXXA Unspecified fall, initial encounter; Z88.2 Allergy status to sulfonamides; Z79.82 Long term (current) use of aspirin; Z79.02 Long term (current) use of antithrombotics/antiplatelets; K21.9 Gastro-esophageal reflux disease without esophagitis; I25.2 Old myocardial infarction; Z95.5 Presence of coronary angioplasty implant and graft; Z11.52 Encounter for screening for COVID-19
CPT/HCPCS: 73502; 80048; 83735; 85025; 85027; 86850; 86900; 86901; 87811; 93005; 96374; 96375; 97162; 97166; 97530; 97535; 99284